=== PATIENT | male | born 1995 | race Caucasian/White ===

== ENCOUNTER 2018-11-05 16:22 | Emergency (ER) | payer SELFPAY ==
--- NOTE | 2018-11-05 16:40 | PDOC ---
Rapid Medical Evaluation Time Seen by Provider: 11/05/18 16:38 Medical Evaluation: 11/05/18 16:38 Pt presents to the ER for low back pain. Pt works in stocking in the grocery store. States pain started after lifting a box of butter 4 days ago. Last motrin last night. Denies saddle anesthesia, bladder/bowel incontinence Exam: no gross neuro deficits, TTP of the R lower back Orders: Nothing Pt to proceed to the ER for further evaluation Discharge Disposition - Diagnosis Back pain - Referrals - Patient Instructions - Post Discharge Activity
[2018-11-05 16:42] VITALS: BP 145/82; PULSE 82; TEMP 98.7; BMI 29.0
[2018-11-05] MEDS ORDERED: KETOROLAC TROMETHAMINE 30 MG/1 ML VIAL IM ONE (17:10)
[2018-11-05] MEDS ORDERED: KETOROLAC TROMETHAMINE 30 MG/1 ML VIAL ONE (17:12)
--- NOTE | 2018-11-05 17:16 | PDOC ---
History of Present Illness - General Chief Complaint: Pain Stated Complaint: LOWER BACK PAIN Time Seen by Provider: 11/05/18 16:38 History Source: Patient Exam Limitations: No Limitations - History of Present Illness Initial Comments: 11/05/18 17:11 CHIEF COMPLAINT: Lower back pain HISTORY OF PRESENT ILLNESS: 23-year-old male denies medical history presents emergency department for evaluation of acute lower back pain all him work 8/5. 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 Patient reports lifting with his back and not bending at his knees. Patient has attempted to rest has taken Motrin with minimal relief of symptoms. Patient denies any saddle anesthesia, foot drop, incontinence of bladder or bowel, urinary retention, difficulty micturating, history of IV drug use or history of cancer. REVIEW OF SYSTEMS: GENERAL: Afebrile, denies any weakness RESPIRATORY: No cough, wheezing, or hemoptysis. CARDIAC: No chest pain or shortness of breath MUSCULOSKELETAL: Pain to generalized lower back. No point tenderness. Pain worse on right than left. SKIN : No erythema, no bruising, no deformity. GI/: Denies any abdominal pain, no urinary difficulty, incontinence or urinary retention. RECTAL: Denies any difficulty this A.m. NEUROLOGICAL: Denies any numbness or tingling. No neurosensory deficits. PHYSICAL EXAM: GENERAL: The patient is awake, alert, and fully oriented, in no acute distress. RESPIRATORY: Lungs clear bilaterally, no rhonchi wheezes or crackles CARDIAC: S1-S2 audible, no murmur rub or gallop MUSCULOSKELETAL: Pain to generalized lower back, nonradiating, no tingling or sensory deficit. Less than 2 second cap refill, +2 pedal pulses. No spinal point tenderness. Normal reflexive and no deficits to sensation or strength. GI/: Abdomen soft, nontender, nondistended. No rebound tenderness. No masses palpable. RECTAL: Deferred patient with no neurological findings SKIN: Warm, Dry, normal turgor, no erythema, no edema no bruising. 11/05/18 17:16 Past History - Past Medical History Allergies/Adverse Reactions: Allergies Allergy/AdvReac Type Severity Reaction Status Date / Time No Known Allergies Allergy Verified 11/05/18 16:38 COPD: No - Immunization History Immunization Up to Date: No - Suicide/Smoking/Psychosocial Hx Smoking History: Never smoked Hx Alcohol Use: No Drug/Substance Use Hx: No *Physical Exam - Vital Signs Last Vital Signs Temp Pulse Resp BP Pulse Ox 98.7 F 82 18 145/82 100 11/05/18 16:39 11/05/18 16:39 11/05/18 16:39 11/05/18 16:39 11/05/18 16:39 Medical Decision Making - Medical Decision Making 11/05/18 17:11 A/P: 23-year-old male with acute lower back pain from poor ergonomics at work Toradol 30 mg IM now Discharge home *DC/Admit/Observation/Transfer Diagnosis at time of Disposition: Back pain Qualifiers: Back pain location: low back pain Chronicity: acute Back pain laterality: right Sciatica presence: without sciatica Qualified Code(s): M54.5 - Low back pain - Discharge Dispostion Disposition: HOME Condition at time of disposition: Stable Decision to Admit order: No - Referrals - Patient Instructions Additional Instructions: Rest. Take Tylenol or Motrin as needed for pain. Follow manufacturers instructions for appropriate dosage. Lidocaine patches can be purchased without a prescription. These can be helpful with this type of pain. Warm moist heat applied to your back may help alleviate pain. Return to emergency department for numbness or tingling to the rectum or genitals, worsening pain, or any other concerns. Thank you very much for choosing us to provide your emergent healthcare needs. - Post Discharge Activity Forms/Work/School Notes: Back to Work
== END 2018-11-05 17:19 | disposition home or self-care (01) ==
LOC: JERFT 16:22
PROC: 3E0233Z Introduction of Anti-inflammatory into Muscle, Percutaneous Approach (ICD-10-PCS; principal; 2018-11-05)
DX: M54.5 Low back pain (principal)
CPT/HCPCS: 99282-25